=== PATIENT | female | born 1985 | race Caucasian/White ===

== ENCOUNTER → 2019-12-27 11:01 | Outpatient (BNVA) | payer OTHER, SELFPAY | PROVIDERS: Family Provider Family Medicine; PCP Family Medicine; Visit Provider Obstetrics & Gynecology | DX: Z12.4 Encounter for screening for malignant neoplasm of cervix (principal) | CPT/HCPCS: 88175 ==

== ENCOUNTER → 2020-04-10 15:03 | Outpatient (BNVA) | payer OTHER, SELFPAY | PROVIDERS: Family Provider Family Medicine; PCP Family Medicine; Visit Provider Obstetrics & Gynecology | DX: N93.9 Abnormal uterine and vaginal bleeding, unspecified (principal) | CPT/HCPCS: 76830 ==

== ENCOUNTER 2023-05-22 02:10 | Emergency (ER) | payer BC, SELFPAY ==
[2023-05-22 02:20] VITALS: BP 112/95; PULSE 94; RESP 18; O2SAT 99; BMI 33.3
[2023-05-22 02:38] LABS: Basophils % 0.5 %; Eosinophils # 0.2 10^3/uL (0.0-0.8); Eosinophils % 3.1 %; Hematocrit 40.2 % (36-47); Mean Corpuscular HGB Conc 33.3 g/dL (30-55); Mean Corpuscular Hemoglobin 27.6 pg (27-33); Mean Corpuscular Volume 82.7 fl (85-98); Monocytes # 0.6 10^3/uL (0.2-0.9); Monocytes % 7.9 %; Neutrophils # 4.86 10^3/uL (1.8-7.7); Nucleated Red Blood Cells % 0 %; Platelet Count 248 10^3/cmm (157-399); Red Blood Count 4.86 10^6/uL (3.85-5.65); Red Cell Distribution Width 13.3 % (12.1-15.1); White Blood Count 7.84 10^3/uL (3.29-11.43)
--- NOTE | 2023-05-22 02:47 | ED_ITS ---
HPI - Abdominal Pain 2 General: Chief Complaint: Abdominal Pain Stated Complaint: abdomen pain Time Seen by Provider: 05/22/23 02:11 History of Present Illness: Patient presents to the ER with complaints of right upper quadrant pain and nausea with no vomiting. Patient has had this for a while she went to [facility] on Thursday had an ultrasound and was told she had gallstones and has been referred to Dr. Kerr surgeon but has not seen him yet. Patient tried taking Prilosec and Tums with no relief. Related Data: Date of Last Menstrual Period: 04/23/23 Review of Systems 2 General: Reports: 10 or more systems reviewed and unremarkable except in HPI and below PFSH ED 2 PFSH: Medical History Patient denies medical problems Denies diabetes, asthma, seizures, hypertension, DVT/PE PCP: Dr. Puri Abnormal uterine bleeding Records received from [facility] on 08/26/2017 -Free T4-0.97 ng/dL--normal range 0.9-1.70 -TSH-1.19--normal range-0.49-3.82 -Prolactin-6.6 ng per mL-normal range or 0.8-23.3 -CBC-6<13.1/38.1> 278 -Estradiol, LH within normal limits Surgical History Encounter for Essure implantation (~08/10/18) Done on 11/08/[address] [place] [facility] No complications immediately postoperatively. HSG scheduled for 02/12/2016 confirmed occlusion. 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 Female Reproductive History: Date of last menstrual period: 04/23/23 Physical Exam 2 Const: COMMON NORMALS: no acute distress, average body habitus, patient oriented x3, no limitations, healthy appearing, alert and well nourished HENMT: COMMON NORMALS: normocephalic, atraumatic, hearing grossly normal bilaterally, external ears normal, EAC's normal, Normal external nose present, moist oral mucous membranes and oropharynx normal HEAD & SCALP: normocephalic and atraumatic NOSE: Normal external nose present EXTERNAL EAR: Yes external ears normal EXTERNAL AUDITORY CANAL: EAC's normal Neck/C-Spine: COMMON NORMALS: no JVD Chest: COMMONS NORMALS: normal inspection of the chest and normal palpation of entire chest wall Resp: COMMON NORMALS: normal respiratory effort, No retractions, No use of accessory muscles and clear to auscultation bilaterally AUSCULTATION: clear to auscultation bilaterally Cardio: COMMON NORMALS: no JVD, regular rate, regular rhythm, S1 normal heart sound present, S2 normal heart sound present, No gallops present (Cardio), No clicks present (Cardio), No murmurs present (Cardio) and No rub (Cardio) R ATE: regular rate RHYTHM: regular rhythm HEART SOUNDS: S1 normal heart sound present and S2 normal heart sound present GI: COMMON NORMALS: Normal to inspection, nondistended, normoactive bowel sounds present, Soft to palpation, No hepatosplenomegaly present and no masses; negative for non-tender (Tender to palpate right upper quadrant) PALPATION: Y es Soft to palpation and Yes No hepatosplenomegaly present Neuro: COMMON NORMALS: patient oriented x3 SENSORIUM/ORIENTATION: Yes alert Course 2 Vital Signs: Vital signs: Vital Signs Pulse Rate 83 05/22/23 04:11 Respiratory Rate 16 05/22/23 04:11 Blood Pressure 125/62 05/22/23 04:11 Pulse Oximetry 99 05/22/23 04:11 Oxygen Delivery Me thod Room Air 05/22/23 02:20 MDM - Abdominal Pain Medical Decision Making Physical exam was performed lab work was obtained liver enzymes were stable, patient was given 30 of Toradol IV 4 mg Zofran and 1 L normal saline bolus and patient was feeling much better. Patient be discharged home on Toradol tablets and to keep her scheduled appointment with Dr. Kerr for further workup and evaluation. Differential Diagnosis Likely abdominal pain; Unlikely acute appendicitis, calculus of kidney, constipation, diverticulitis, endometriosis, gastroenteritis, pancreatitis or small bowel obstruction Medical Records I reviewed the patient's medical records. Lab Data I reviewed the patient's lab results. 05/22/23 02:35 05/22/23 02:35 Labs/Radiology: Laboratory Results WBC 7.84 10^3/uL (3.29-11.43) 05/22/23 02:35 RBC 4.86 10^6/uL (3.85-5.65) 05/22/23 02:35 Hgb 13.40 g/dL (11.27-16.99) 05/22/23 02:35 Hct 40.2 % (36-47) 05/22/23 02:35 MCV 82.7 fl (85-98) L 05/22/23 02:35 MCH 27.6 pg (27-33) 05/22/23 02:35 MCHC 33.3 g/dL (30-55) 05/22/23 02:35 RDW 13.3 % (12.1-15.1) 05/22/23 02:35 Plt Count 248 10^3/cmm (157-399) 05/22/23 02:35 MPV 10.0 fL (7.4-10.4) 05/22/23 02:35 Neut % (Auto) 62.0 % 05/22/23 02:35 Lymph % (Auto) 26.0 % 05/22/23 02:35 Rooks % (Auto) 7.9 % 05/22/23 02:35 Eos % (Auto) 3.1 % 05/22/23 02:35 Baso % (Auto) 0.5 % 05/22/23 02:35 Neut # (Auto) 4.86 10^3/uL (1.8-7.7) 05/22/23 02:35 Lymph # (Auto) 2.0 10^3/uL (0.8-4.8) 05/22/23 02:35 Rooks # (Auto) 0.6 10^3/uL (0.2-0.9) 05/22/23 02:35 Eos # (Auto) 0.2 10^3/uL (0.0-0.8) 05/22/23 02:35 Baso # (Auto) 0.0 10^3/uL (0.0-0.1) 05/22/23 02:35 Nucleated RBC % (auto) 0 % 05/22/23 02:35 Nucleated RBCs # 0.0 /100WBC 05/22/23 02:35 Sodium 136 mmol/L (136-145) 05/22/23 02:35 Potassium 4.4 mmol/L (3.5-5.1) 05/22/23 02:35 Chloride 102 mmol/L (98-107) 05/22/23 02:35 Carbon Dioxide 21 mmol/L (22-29) L 05/22/23 02:35 Anion Gap 17.4 (5-19) 05/22/23 02:35 BUN 10 mg/dL (6-20) 05/22/23 02:35 Creatinine 0.9 mg/dL (0.5-0.9) 05/22/23 02:35 GFR Calculation 69.7 mL/min (90-130) L 05/22/23 02:35 Glucose 105 mg/dL (65-115) 05/22/23 02:35 Calculated Osmolality 281 mOsm/kg (285-295) L 05/22/23 02:35 Calcium 9.4 mg/dL (8.5-10.5) 05/22/23 02:35 Total Bilirubin 0.3 mg/dL (0.15-1.2) 05/22/23 02:35 AST 22 U/L (0-32) 05/22/23 02:35 ALT 20 U/L (0-33) 05/22/23 02:35 Alkaline Phosphatase 63 U/L (35-105) 05/22/23 02:35 Total Protein 7.8 g/dL (6.6-8.7) 05/22/23 02:35 Albumin 4.5 g/dL (3.5-5.2) 05/22/23 02:35 Globulin 3.3 g/dL (1.3-4.6) 05/22/23 02:35 Lipase 60 U/L (13-60) 05/22/23 02:35 Urine Color Yellow (Yellow) 05/22/23 03:18 Urine Appearance Hazy (CLEAR) A 05/22/23 03:18 Urine pH 5 (5-7) 05/22/23 03:18 Ur Specific Fossil 1.030 (1.005-1.030) 05/22/23 03:18 Urine Protein Neg (Negative) 05/22/23 03:18 Urine Glucose (UA) Norm (Normal) 05/22/23 03:18 Urine Ketones Negative (Negative) 05/22/23 03:18 Urine Blood Trace (Negative) H 05/22/23 03:18 Urine Nitrate Negative (Negative) 05/22/23 03:18 Urine Bilirubin Neg (Negative) 05/22/23 03:18 Urine Urobilinogen Neg mg/dL (Negative) 05/22/23 03:18 Ur Leukocyte Esterase Negative (Negative) 05/22/23 03:18 Urine RBC 0-4 /hpf (0-2) H 05/22/23 03:18 Urine WBC 0-4 /hpf (0-5) H 05/22/23 03:18 Ur Squamous Epith Cells 15-25 /hpf (0-5) H 05/22/23 03:18 Amorphous Sediment Not Reportable 05/22/23 03:18 Urine Bacteria 1+ /hpf (NONE) H 05/22/23 03:18 Urine Mucus 2+ /hpf 05/22/23 03:18 All radiology interpretation(s) finalized by discharge Discharge Plan Discharge Patient Disposition: Home Clinical Impression: Biliary colic Condition: Stable Prescriptions: New ondansetron HCl 4 mg tablet 4 mg PO Q8H PRN (Reason: nausea and vomiting) Qty: 14 0RF ketorolac 10 mg tablet 10 mg PO Q8H PRN (Reason: pain) Qty: 14 0RF No Action omeprazole 20 mg capsule,delayed release(DR/EC) 40 mg PO DAILY etonogestrel-ethinyl estradiol [NuvaRing] 0.12-0.015 mg/24 hr ring 1 vag ring VAGINAL DIRECTED Qty: 3 3RF Rx Instructions: Insert for three weeks; remove one week for period sertraline [Zoloft] 25 mg tablet 50 mg PO DAILY Discharge Orders: Discharge ED (Routine); Ordered 05/22/23 Ordered By: Jose Augustin Referrals: Neno Puri MD [Primary Care Provider] - 1 week Patient Instructions: Biliary Colic (ED), Abdominal Pain (ED) Activity Restrictions/Additional Instructions: Your lab work in ER was essentially normal. Your liver enzymes were normal. He will be discharged home on pain medicine and nausea medicine. Please keep your appointment with Dr. Kerr for further workup and treatment. If your pain becomes and bearable please return to the ER. Coding Level of Care Code ED Substance Abuse Technician for Maverick Ogden
[2023-05-22 02:59] LABS: Alanine Aminotransferase 20 U/L (0-33); Albumin Level 4.5 g/dL (3.5-5.2); Alkaline Phosphatase 63 U/L (35-105); Anion Gap 17.4 (5-19); Aspartate Amino Transferase 22 U/L (0-32); Blood Urea Nitrogen 10 mg/dL (6-20); Calcium 9.4 mg/dL (8.5-10.5); Carbon Dioxide 21 mmol/L (22-29); Chloride 102 mmol/L (98-107); Creatinine Clr Calc Pharmacy 86.8436; Globulin 3.3 g/dL (1.3-4.6); Glomerular Filtration Rate 69.7 mL/min (90-130); Glucose 105 mg/dL (65-115); Lipase 60 U/L (13-60); Osmolality Calculated 281 mOsm/kg (285-295); Potassium 4.4 mmol/L (3.5-5.1); Sodium 136 mmol/L (136-145); Total Bilirubin 0.3 mg/dL (0.15-1.2); Total Protein 7.8 g/dL (6.6-8.7)
[2023-05-22] MEDS: ondansetron 2 mg/ML SDV 2 mL 4 MG IVP (03:12)
[2023-05-22] MEDS: ketorolac 30 mg/mL INJ IVP (03:12)
[2023-05-22] MEDS: sodium chloride 0.9% 1,000 ML 999 ML IV (03:12)
[2023-05-22 03:16] VITALS: BP 125/62; PULSE 83; RESP 16; O2SAT 99
[2023-05-22 03:34] LABS: Add Urine Culture? No; Add Urine Microscopic? YES; Bacteria Urine 1+ /hpf; Bilirubin Urine Neg (Negative); Blood Urine Trace (Negative); Glucose Urine UA Norm (Normal); Ketones Urine Negative (Negative); Leukocyte Esterase Urine Negative (Negative); Mucus Urine 2+ /hpf; Nitrate Urine Negative (Negative); Protein Urine Neg (Negative); RBC Urine 0-4 /hpf (0-2); Squamous Epithelial Cell Urine 15-25 /hpf (0-5); Urine Appearance Hazy (CLEAR); Urine Color Yellow (Yellow); Urobilinogen Urine Neg (Negative); WBC Urine 0-4 /hpf (0-5); pH Urine 5 (5-7)
[2023-05-22 04:11] VITALS: BP 125/62; PULSE 83; RESP 16; O2SAT 99
== END 2023-05-22 04:13 | disposition home or self-care (01) ==
PROVIDERS: Emergency Provider Emergency Medicine; PCP Family Medicine
DX: K80.50 Calculus of bile duct without cholangitis or cholecystitis without obstruction (principal)
CPT/HCPCS: 80053; 81001; 83690; 85025; 96361; 96374; 96375; 99284; J1885; J2405; J7030

== ENCOUNTER 2024-01-19 08:08 | Outpatient (CLI) | payer BC, SELFPAY ==
--- NOTE | 2024-01-19 08:13 | MM_ITS ---
WS: [id number] BILATERAL 3D TOMOSYNTHESIS DIGITAL SCREENING MAMMOGRAPHY WITH CAD CLINICAL INFORMATION: SCREENING HISTORY: Screening mammogram. No current complaints. COMPARISON: None. TECHNIQUE: Bilateral CC and MLO views. FINDINGS: The breasts are composed of heterogeneous fibroglandular density tissue, which can limit the detectio n of small underlying mass lesions. No suspicious mass, asymmetry, calcifications, or architectural d istortion. No evidence of malignancy. Few incidental punctate calcifications. MM/MM [facility] tomosynthesis [id number] IMPRESSION: DENSITY: The breasts are heterogeneously dense, which may obscure small masses. BI-RADS: 2 - Benign FOLLOW UP: 1 Year Follow-up Recommend return to annual screening mammography.
== END 2024-01-19 08:09 | disposition home or self-care (01) ==
LOC: RAD 08:09
PROVIDERS: PCP Family Medicine; Visit Provider Family Medicine
DX: Z12.31 Encounter for screening mammogram for malignant neoplasm of breast (principal); R92.333 Mammographic heterogeneous density, bilateral breasts
CPT/HCPCS: 77063; 77067